=== PATIENT | female | born 1990 | race American Indian/Alaskan Native ===

== ENCOUNTER 2016-09-24 15:08 | Emergency (ER) | payer SELFPAY ==
[2016-09-24 15:38] VITALS: BP 117/68
--- NOTE | 2016-09-24 17:25 | Emergency Department Report ---
ED Rash HPI - HPI Chief Complaint: Skin Rash Stated Complaint: SEVERE SKIN RASH Time Seen by Provider: 09/24/16 16:35 Duration: 2 months Location: Upper Extremities Suspected Cause: Other (chronic eczema) Rash Symptoms: Yes Itching (bue), Yes Peeling (bue), No Facial Swelling, No Tongue/Oral Swelling, No Breathing Difficulties, No Choking Sensation, No Wheezing/Dyspnea, No Blistering, No Fever, No Lightheaded, No Malaise, No Myalgias Severity: moderate Other History: She reports that she has chronic eczema that flares up from time to time and she's been using medication but area has not cleared up and this has been going on for a couple months. She denies any respiratory symptoms. No medication taken prior to coming to the emergency room. Her pain level is 0- 10. Patient has a history of asthma and eczema. Denies any nausea or vomiting. Negative fever or chills. She does not have a sales representative electric service. ED Review of Systems ROS: Stated complaint: SEVERE SKIN RASH Other details as noted in HPI Comment: All other systems reviewed and negative Constitutional: denies: chills, fever ENT: denies: throat pain Respiratory: no symptoms reported Cardiovascular: denies: chest pain, palpitations, edema, syncope Gastrointestinal: denies: abdominal pain, nausea, vomiting Musculoskeletal: denies: back pain, joint swelling, arthralgia, myalgia Skin: rash, pruritus Neurological: denies: headache ED Past Medical Hx - Past Medical History Previous Medical History?: Yes Hx Hypertension: Yes Hx Congestive Heart Failure: No Hx Diabetes: No Hx Asthma: Yes Hx COPD: No Additional medical history: EXCEMA - Surgical History Past Surgical History?: No - Family History Family history: hypertension - Social History Smoking Status: Current Every Day Smoker Substance Use Type: None - Medications Home Medications: Home Medications Medication Instructions Recorded Confirmed Last Taken Type NIFEdipine XL [Procardia Xl] 60 mg PO QDAY #30 tablet 04/06/15 Unknown Rx Labetalol [Normodyne TAB] 200 mg PO BID #60 tablet 04/07/15 Unknown Rx Triamcinolone Acetonide 15 gm TP BID #1 applicator 09/24/16 Unknown Rx [Triamcinolone Acetonide Oint 0.5%] hydrOXYzine HCL [Atarax] 25 mg PO Q6HR PRN #12 tablet 09/24/16 Unknown Rx methylPREDNISolone [Medrol] 4 mg PO QAM #1 tab.ds.pk 09/24/16 Unknown Rx Rash Exam - Exam General: Vital signs noted. No distress. Alert and acting appropriately. This is a 25-year-old female well-nourished well-developed in no acute distress HEENT: No Periorbital Edema, No Conjuctival Injection, No Chemosis, No Perioral Edema, No Tongue Edema, No Uvular Edema, No Compromised Airway, No Drooling Lungs: Yes Good Air Exchange, No Wheezes, No Ronchi, No Stridor, No Cough, No Labored Respirations, No Retractions, No Use of Accessory Muscles, No Other Abnormal Lung Sounds Heart: Yes Regular, No Murmur Skin: Yes Other (thick leathery patches with scaling and roughness to bilateral upper arms and forearm.), No Urticarial Rash, No Maculopapular Rash, No Excoriations (excoriated area to bilateral upper arms and forearm.), No Weeping , No Tenderness, No Erythema, No Edema Other: Positive: Abdomen Normal, Neurologic Normal, Musculoskeletal Normal ED Course Vital Signs 09/24/16 15:36 Temperature 97.8 F Pulse Rate 59 L Respiratory 16 Rate Blood Pressure 117/68 O2 Sat by Pulse 100 Oximetry - Reevaluation(s) Reevaluation #1: 09/24/16 18:09 Solumedrol 125 mg IM 09/24/16 18:18 ED Medical Decision Making - Medical Decision Making MDM Assessment/plan. ED course: Pt here for acute exacerbation of chronic eczema to her forearms and arms. Says she's been tried home related remedies but it hasn't been helping over the last 2 months. She does not have a sales representative electric service and reports rash with itching .she does not have any respiratory symptoms. I discussed the patient diagnosis and treatment plan and she voiced understanding. Patient was given Solu-Medrol IM in emergency room and I discussed with her that I will put her on topical and oral medication for eczema. I also discussed her that she' ll need to follow up with sales representative electric service for further treatment. Labs/diagnostics: No need for any labs or diagnostic tests. Diagnosis: Exacerbation of eczema, pruritic skin disorder Medication: Given Solu-Medrol 125 mg IM and emergency room and prescription for drug Dosepak, Atarax and triamcinolone ointment. Follow up primary care physician in 3-5 days. Practice safe sex Please refrain from having sex for the next 2 weeks. Take antibiotic for urinary tract infection. Increase her fluid intake. Make sure your partner know that you were treated for STD in emergency room and they will need to go to health department to get checked. Critical care attestation.: If time is entered above; I have spent that time in minutes in the direct care of this critically ill patient, excluding procedure time. ED Disposition Clinical Impression: Eczema of both upper extremities, Skin pruritus Disposition: DC- TO HOME OR SELFCARE Is pt being admited?: No Does the pt Need Aspirin: No Condition: Stable Instructions: Eczema (ED), Itchy Skin (ED) Additional Instructions: Follow up primary care physician in 3-5 days. Practice safe sex Please refrain from having sex for the next 2 weeks. Take antibiotic for urinary tract infection. Increase her fluid intake. Make sure your partner know that you were treated for STD in emergency room and they will need to go to health department to get checked. Prescriptions: hydrOXYzine HCL [Atarax] 25 mg PO Q6HR PRN #12 tablet PRN Reason: Itching methylPREDNISolone [Medrol] 4 mg PO QAM #1 tab.ds.pk Triamcinolone Acetonide [Triamcinolone Acetonide Oint 0.5%] 15 gm TP BID #1 applicator Referrals: PRIMARY CARE, [Primary Care Provider] - 2-3 Days GERRI FORTUNE MD [Staff Physician] - 2-3 Days Forms: Work/School Release Form(ED)
== END 2016-09-24 18:51 | disposition home or self-care (01) ==
LOC: ED 15:08
DX: L30.9 Dermatitis, unspecified (principal); L29.9 Pruritus, unspecified; I10 Essential (primary) hypertension; J45.909 Unspecified asthma, uncomplicated; F17.200 Nicotine dependence, unspecified, uncomplicated
CPT/HCPCS: 96372; 99282; J2930

== ENCOUNTER 2016-10-24 22:16 | Emergency (ER) | payer SELFPAY ==
[2016-10-24] MEDS ORDERED: TYLENOL PO ONE (22:33)
[2016-10-24] MEDS ORDERED: ZOFRAN ODT PO ONE (22:33)
[2016-10-24] MEDS ORDERED: TYLENOL ONE (22:33)
[2016-10-24] MEDS ORDERED: ZOFRAN ODT ONE (22:36)
[2016-10-24 23:00] LABS: Basophils % (Auto) 0.6 % (0.0-1.8); Eosinophils % (Auto) 4.5 % (0.0-4.3); Hematocrit 36.3 % (30.3-42.9); Mean Corpuscular HGB Conc 33 % (30-34); Mean Corpuscular Hemoglobin 30 pg (28-32); Mean Corpuscular Volume 91 fl (79-97); Platelet Count 220 K/mm3 (140-440); Red Blood Count 3.98 M/mm3 (3.65-5.03); Red Cell Distribution Width 13.1 % (13.2-15.2); White Blood Count 8.1 K/mm3 (4.5-11.0)
[2016-10-24 23:22] LABS: Anion Gap 20 mmol/L; Blood Urea Nitrogen 12 mg/dL (7-17); Calcium 8.9 mg/dL (8.4-10.2); Carbon Dioxide 21 mmol/L (22-30); Glucose 80 mg/dL (65-100); Potassium 3.4 mmol/L (3.6-5.0); Sodium 142 mmol/L (137-145)
[2016-10-24 23:28] LABS: Erythrocyte Sedimentation Rate 22 mm/Hr (0-20)
[2016-10-25 00:48] LABS: Bacteria,Urine 1+ /HPF (Negative); Bilirubin,Urine NEG (Negative); Blood,Urine NEG (Negative); Ketones,Urine 20 mg/dL (Negative); Leukocyte Esterase,Urine TR (Negative); Mucus,Urine 3+ /HPF; Nitrite,Urine NEG (Negative)
[2016-10-25 01:25] VITALS: BP 110/82
--- NOTE | 2016-10-25 01:38 | Cat Scan Report ---
FINAL REPORT PROCEDURE: CT HEAD/BRAIN WO CON TECHNIQUE: Computerized tomography of the head was performed without contrast material. HISTORY: Headache, Dizzy, Rt Hand Tingle COMPARISON: 04/04/2015 FINDINGS: Skull and scalp: Normal. Paranasal sinuses: There is moderate opacification of the ethmoid sinuses. Slight opacification of the right frontal sinus.. Ventricles and subarachnoid spaces: Normal. Cerebrum: No evidence of hemorrhage, acute infarction or mass . Cerebellum and brainstem: No evidence of hemorrhage, acute infarction or mass. Vasculature: Normal. Comments: None. IMPRESSION: There is no evidence of an acute intracranial process. Mild sinusitis.
== END 2016-10-25 01:22 | disposition left against medical advice (07) ==
LOC: ED 22:16
DX: Z53.21 Procedure and treatment not carried out due to patient leaving prior to being seen by health care provider (principal)
CPT/HCPCS: 36415; 70450; 80048; 81001; 84703; 85025; 85652; 86140; Q0162

== ENCOUNTER 2018-08-29 13:07 | Emergency (ER) | payer OTHER ==
[2018-08-29 13:27] VITALS: BP 124/71
--- NOTE | 2018-08-29 13:32 | Emergency Department Report ---
Chief Complaint: Skin Rash Stated Complaint: RASH - HPI History of Present Illness: 27 y/o comes in for ezcema flare up. She has not taking any medication for this in a while. Never followed up. - ROS Review of Systems: ezcema flare up. Rash itches. - Exam Vital Signs: Vital Signs 08/29/18 13:25 Temperature 97.3 F L Pulse Rate 114 H Respiratory 16 Rate Blood Pressure 124/71 O2 Sat by Pulse 99 Oximetry Physical Exam: Alert and oriented times three. skin had dry patches and red where she has scratched MSE screening note: Focused history and physical exam performed. Due to findings the following was ordered: Referral to dermatology or primary care office ED Disposition for MSE Clinical Impression: Acute eczema Disposition: DC- TO HOME OR SELFCARE Is pt being admited?: No Does the pt Need Aspirin: No Condition: Stable Instructions: Acute Rash (ED) Additional Instructions: Try over the counter hydrocortisone cream. Follow up with bottom worker. List below. Referrals: GERRI FORTUNE MD [Staff Physician] - 3-5 Days MAREK FRIAS MD [Staff Physician] - 3-5 Days
== END 2018-08-29 13:38 | disposition home or self-care (01) ==
LOC: ED 13:07
DX: L30.9 Dermatitis, unspecified (principal)
CPT/HCPCS: 99282